=== PATIENT | male | born 1970 | race Caucasian/White ===

== ENCOUNTER 2017-12-28 09:47 | Emergency (ER) | payer BC ==
[~2017-12-28] VITALS: Ht 180.3 cm; Wt 63.5 kg
--- NOTE | 2017-12-28 10:12 | NUR ---
head CT ordered. pt resting in bed. no distress noted.
--- NOTE | 2017-12-28 10:18 | NUR ---
pt left for CT via W/C escorted by pilot plant technician.
[2017-12-28 11:05] VITALS: BP 122/80
--- NOTE | 2017-12-28 11:06 | NUR ---
Patient discharged to home in stable conditon. Written and verbal after care instructions given. Patient verbalizes understanding of instructions. Pt discharged with prescription order. All belongings taken with patient. Pt ambulated w/o difficulty.
== END 2017-12-28 11:08 | disposition home or self-care (01) ==
LOC: ER 09:47
DX: R51 Headache (principal); Z88.0 Allergy status to penicillin
CPT/HCPCS: 70450; 99284; A4663